=== PATIENT | female | born 1970 | race Caucasian/White ===

== ENCOUNTER → 2017-02-23 | Outpatient (CLI) | payer BC ==
--- NOTE | 2017-02-24 13:48 | MM ---
Reason for exam: screening (asymptomatic). Last mammogram was performed 15 years and 5 months ago. History: Patient had first child at age 34. Family history of breast cancer in 2 paternal aunts. Took hormonal contraceptives for 5 years beginning at age 22. Physical Findings: A clinical breast exam by your physician is recommended on an annual basis and results should be correlated with mammographic findings. MG Screening Mammo w CAD Bilateral CC and MLO view(s) were taken. BISWAS view(s) were taken of the right breast. Prior study comparison: September 08, 2001, bilateral diagnostic mammogram. The breast tissue is extremely dense which could obscure a lesion on mammography. Finding: There is a 30 x 20 mm circumscribed oval mass in the lower inner quadrant, middle position of the left breast, has fat and fibroglandular density or "breast in breast sign" consistent with benign hamartoma. No additional dominant lesion. ASSESSMENT: Benign, BI-RAD 2 RECOMMENDATION: Routine screening mammogram of both breasts in 1 year. LEWIS
== END | disposition home or self-care (01) ==
LOC: RADMAMWWP 10:04
PROVIDERS: ATTEND Obstetrics & Gynecology Obstetrics
DX: Z12.31 Encounter for screening mammogram for malignant neoplasm of breast (principal)

== ENCOUNTER → 2019-04-06 | Outpatient (CLI) | payer BC ==
--- NOTE | 2019-04-07 11:45 | MM ---
Reason for exam: screening (asymptomatic). Last mammogram was performed 2 years and 1 month ago. History: Patient had first child at age 34. Family history of breast cancer in maternal aunt and breast cancer in paternal aunt. Took hormonal contraceptives for 5 years beginning at age 22. Physical Findings: A clinical breast exam by your physician is recommended on an annual basis and results should be correlated with mammographic findings. MG Screening Mammo w CAD Bilateral CC and MLO view(s) were taken. Prior study comparison: February 23, 2017, bilateral MG screening mammo w CAD. September 08, 2001, bilateral diagnostic mammogram. The breast tissue is extremely dense which could obscure a lesion on mammography. Right palpable abnormality appears as a benign stable lymph node. Left breast mass appears as a stable hamartoma in the lower inner quadrant at middle depth. No suspicious abnormality. No significant changes when compared with prior studies. ASSESSMENT: Benign, BI-RAD 2 RECOMMENDATION: Routine screening mammogram of both breasts in 1 year.
== END | disposition home or self-care (01) ==
LOC: RADMAMWWP 16:30
PROVIDERS: ATTEND Obstetrics & Gynecology Obstetrics
DX: Z12.31 Encounter for screening mammogram for malignant neoplasm of breast (principal); Z80.3 Family history of malignant neoplasm of breast
CPT/HCPCS: 77067

== ENCOUNTER → 2022-10-20 | Outpatient (CLI) | payer BC ==
--- NOTE | 2022-10-21 07:44 | MM ---
Reason for Exam: Screening (asymptomatic). Last mammogram was performed 3 year(s) and 6 month(s) ago. Patient History: Menarche at age 14. First Full-Term at age 34. Late child-bearing (after 32). Right ovary removed at age 45. Hysterectomy at age 45. Postmenopausal. Patient has history of breast feeding. Hormonal Contraceptives for 5 years from age 22 until age 27. Paternal aunt had breast cancer. Maternal aunt had breast cancer. Risk Values: Mayuri 5 year model risk: 1.3%. NCI Lifetime model risk: 12.1%. Prior Study Comparison: 09/08/2001 Bilateral Diagnostic Mammogram, [facility]. 02/23/2017 Bilateral Screening Mammogram, [facility]. 04/06/2019 Bilateral Screening Mammogram, [facility]. Tissue Density: The breast tissue is heterogeneously dense. This may lower the sensitivity of mammography. Findings: Analyzed By CAD. Focal asymmetry or mass in the middle depth inferior aspect left breast with fat and soft tissue density is consistent with fibroadenolipoma, benign etiology. There is however a new 6 mm round circumscribed mass anteriorly in the left breast approximately 3 cm distance from nipple that warrants follow-up. Overall Assessment: Incomplete: need additional imaging evaluation, BI-RAD 0 Management: Diagnostic Breast Ultrasound of the left breast. Targeted ultrasound left breast. Electronically signed and approved by: Camilo Foley M.D.
== END | disposition home or self-care (01) ==
LOC: RADMAMWWP 14:51
PROVIDERS: ATTEND Family Medicine
DX: Z12.31 Encounter for screening mammogram for malignant neoplasm of breast (principal); Z78.0 Asymptomatic menopausal state; Z80.3 Family history of malignant neoplasm of breast
CPT/HCPCS: 77067

== ENCOUNTER → 2022-10-27 | Outpatient (CLI) | payer BC ==
--- NOTE | 2022-10-27 15:20 | USB ---
Reason for Exam: Additional evaluation requested from abnormal screening. Patient History: Menarche at age 14. First Full-Term at age 34. Late child-bearing (after 32). Right ovary removed at age 45. Hysterectomy at age 45. Postmenopausal. Patient has history of breast feeding. Hormonal Contraceptives for 5 years from age 22 until age 27. Paternal aunt had breast cancer. Maternal aunt had breast cancer. Risk Values: Mayuri 5 year model risk: 1.3%. NCI Lifetime model risk: 12.1%. Technique: Method: Targeted. Prior Study Comparison: 02/23/2017 Bilateral Screening Mammogram, [facility]. 04/06/2019 Bilateral Screening Mammogram, [facility]. 10/20/2022 Bilateral MG screening mammo w CAD, [facility]. Findings: The lower outer quadrant of the left breast, the axilla of the left breast and the retroareolar of the left breast were scanned. Imaged: Ultrasound imaging of: Area of concern lower outer quadrant of the left, retroareolar region and axilla. No evidence for organizing fluid collection or mass. Overall Assessment: Benign, BI-RAD 2 Management: Screening Mammogram of both breasts in 1 year. A clinical breast exam by your physician is recommended on an annual basis and results should be correlated with mammographic findings. This exam should not preclude additional follow-up of suspicious palpable abnormalities. Results were given to the patient verbally at the time of exam. Electronically signed and approved by: Krzysztof Rea DO
== END | disposition home or self-care (01) ==
LOC: RADUSWWP 14:46
PROVIDERS: ATTEND Family Medicine
DX: R92.8 Other abnormal and inconclusive findings on diagnostic imaging of breast (principal); Z78.0 Asymptomatic menopausal state; Z80.3 Family history of malignant neoplasm of breast